=== PATIENT | male | born 1995 | race Caucasian/White ===

== ENCOUNTER 2021-06-07 10:49 | Emergency (ER) | payer OTHER ==
[~2021-06-07 10:49] MED LIST: IBUPROFEN800 MG PO
[2021-06-07] MEDS ORDERED: NAPROXEN500 MG PO (13:03)
== END 2021-06-07 13:14 | disposition home or self-care (01) ==
LOC: FER 10:49
DX: S86.911A Strain of unspecified muscle(s) and tendon(s) at lower leg level, right leg, initial encounter (principal); I10 Essential (primary) hypertension; Z79.899 Other long term (current) drug therapy
CPT/HCPCS: 93971